=== PATIENT | male | born 1965 | race Two or more races ===

== ENCOUNTER 2020-01-06 09:29 | Inpatient (IN) | payer OTHER ==
[~2020-01-06] VITALS: Ht 175.3 cm; Wt 99.8 kg
[2020-01-06 10:19] LABS: Basophils # (auto) 0 10 ^3/uL (0-0.2); Eosinophils # (auto) 0 10 ^3/uL (0-0.8); Lymphocytes # (auto) 0.3 10 ^3/uL (0.4-5.4); Monocytes # (auto) 0.3 10 ^3/uL (0-1.3); Neutrophils # (auto) 5.5 10 ^3/uL (1.6-8.6); White Blood Cell 6.1 10^3/uL (4.4-10.8)
[2020-01-06 10:20] LABS: Basophils % (auto) 0.4 % (0.0-2.0); Hematocrit 39.2 % (41.0-53.0); Hemoglobin 12.9 g/dL (13.5-17.5); Lymphocytes % (auto) 4.8 % (10.0-50.0); Mean Corpuscular Hemoglobin 26.1 pg (28.0-32.0); Monocytes % (auto) 5.7 % (0.0-12.0); Neutrophils % (auto) 89.1 % (37.0-80.0); Platelet Count (auto) 275 10^3/uL (140-450); Red Blood Cells 4.96 10^6/uL (4.5-5.90)
[2020-01-06 10:28] LABS: Albumin 2.7 g/dL (3.4-5.0); Anion Gap 7 (5-15); Blood Urea Nitrogen 14 mg/dL (7-18); Calcium 8.8 mg/dL (8.5-10.1); Carbon Dioxide 26 mmol/L (21-32); Chloride 104 mmol/L (98-107); Glucose 126 mg/dL (74-106); Potassium 4.1 mmol/L (3.5-5.1); Sodium 137 mmol/L (136-145)
[2020-01-06 10:36] LABS: Alanine Aminotransferase 43 U/L (16-61); Alkaline Phosphatase 104 U/L (45-117); Aspartate Aminotransferase 39 U/L (15-37); BUN/Creatinine Ratio 18.7; Bilirubin, Total 0.4 mg/dL (0.2-1.0); CRP High Sensitivity 7.39 mg/dL (< 0.3); GFR African American 139 mL/min; GFR Non-African American 115 mL/min; Lactate Dehydrogenase 364 U/L (87-241); Total Protein 7.5 g/dL (6.4-8.2)
[2020-01-06] MEDS ORDERED: DexAMETHasone SOD PHOS 10MG/1ML VIAL INJ IV ONE (12:00)
[2020-01-06] MEDS ORDERED: DOXYCYCLINE 100MG/250ML 250 ML IV ONE (12:00)
[2020-01-06] MEDS ORDERED: LORazepam 0.5 MG TAB PO PRN (12:15)
[2020-01-06] MEDS ORDERED: ONDANSETRON HCL 4 MG/2 ML VIAL IV PRN (12:15)
[2020-01-06] MEDS ORDERED: ALUM & MAG HYDROX-SIMETH LIQ(MAALOX) 30 ML PO PRN (12:15)
[2020-01-06] MEDS ORDERED: ACETAMINOPHEN 500 MG TAB PO PRN (12:15)
[2020-01-06] MEDS ORDERED: NITROGLYCERIN 0.4 MG SL TAB SL PRN (12:15)
[2020-01-06] MEDS ORDERED: HYDROcodone-ACET 5/325MG TAB PO PRN (12:15)
[2020-01-06] MEDS ORDERED: MORPHINE SULF INJ 2 MG/ML SYRINGE 1ML IV PRN ×2 (12:15)
[2020-01-06] MEDS ORDERED: DOCUSATE SOD 100 MG CAP PO PRN (12:15)
[2020-01-06] MEDS ORDERED: PIPERACILLIN-TAZOB 3.375GM 100 ML IV ONE (12:45)
[2020-01-06] MEDS ORDERED: ENOXAPARIN SOD 100 MG/1 ML SYRINGE SC ONE (12:45)
[2020-01-06] MEDS ORDERED: VANCOMYCIN PER PHARMACY 0 MG IV SCH (12:45)
[2020-01-06] MEDS ORDERED: REMDESIVIR PER PHARMACY IV SCH (13:00)
[2020-01-06 13:30] LABS: Cholesterol 197 mg/dL (< 200); HDL Cholesterol 45 mg/dL (40-59); LDL Cholesterol 124 mg/dL (< 100); Triglycerides 185 mg/dL (< 150)
[2020-01-06] MEDS ORDERED: REMDESIVIR 200 MG in NS 210ml LOADING DOSE ADULT IV ONE (22:00)
[2020-01-06] MEDS: FAMOTIDINE (10MG/ML) 2ML VL IV SCH (22:09)
[2020-01-06] MEDS: ENOXAPARIN SOD 120 MG/0.8 ML SYRINGE SC SCH (22:10)
[2020-01-06] MEDS: VANCOMYCIN 1GM/250ML 250 ML IV SCH (23:17)
[2020-01-06] MEDS: SODIUM CHLORIDE 0.9% 1,000 ML IV SCH (23:17)
[2020-01-07] MEDS: PIPERACILLIN-TAZOB 3.375GM 100 ML IV SCH ×3 (00:21→12:07)
[2020-01-07 00:35] LABS: Lactic Acid w/Reflex 2.6 mmol/L (0.4-2.0)
[2020-01-07] MEDS: ALBUTEROL SULF HFA 90MCG INH 200DOSE IN SCH ×5 (04:23→21:39)
[2020-01-07] MEDS: BUDESONIDE (INHALATION) 180 MCG IH IN SCH ×3 (04:24→21:39)
[2020-01-07] MEDS: VANCOMYCIN 1GM/250ML 250 ML IV SCH (05:00)
[2020-01-07] MEDS: SODIUM CHLORIDE 0.9% 1,000 ML IV SCH (05:25)
[2020-01-07 05:36] LABS: Basophils # (auto) 0 10 ^3/uL (0-0.2); Basophils % (auto) 0.2 % (0.0-2.0); Eosinophils # (auto) 0 10 ^3/uL (0-0.8); Hematocrit 38.6 % (41.0-53.0); Hemoglobin 12.4 g/dL (13.5-17.5); Lymphocytes # (auto) 0.4 10 ^3/uL (0.4-5.4); Lymphocytes % (auto) 8.4 % (10.0-50.0); Mean Corpuscular Hemoglobin 25.6 pg (28.0-32.0); Mean Corpuscular Hgb Conc. 32.2 g/dL (32.0-36.0); Mean Corpuscular Volume 79.4 fL (80.0-100.0); Monocytes # (auto) 0.3 10 ^3/uL (0-1.3); Monocytes % (auto) 8.1 % (0.0-12.0); Neutrophils # (auto) 3.5 10 ^3/uL (1.6-8.6); Neutrophils % (auto) 83.3 % (37.0-80.0); Nucleated Red Blood Cells % 0.2 %; Platelet Count (auto) 318 10^3/uL (140-450); Red Blood Cells 4.86 10^6/uL (4.5-5.90); Red Cell Distribution Width 17.2 % (11.8-14.3); White Blood Cell 4.2 10^3/uL (4.4-10.8)
[2020-01-07 05:56] LABS: Potassium 3.9 mmol/L (3.5-5.1)
[2020-01-07 06:09] LABS: Albumin 2.5 g/dL (3.4-5.0); Bilirubin, Total 0.4 mg/dL (0.2-1.0); Calcium 8.9 mg/dL (8.5-10.1); Total Protein 7.4 g/dL (6.4-8.2)
[2020-01-07] MEDS ORDERED: DexAMETHasone SOD PHOS 10MG/1ML VIAL INJ IV SCH (10:00)
[2020-01-07] MEDS ORDERED: ZINC SULFATE 220mg CAP or TAB PO SCH (10:00)
[2020-01-07] MEDS ORDERED: ASCORBIC ACID 1,000 MG TAB PO SCH (10:00)
[2020-01-07] MEDS ORDERED: CHOLECALCIFEROL (VITD3) 2,000 UNIT CAP PO SCH (10:00)
[2020-01-07] MEDS: FAMOTIDINE (10MG/ML) 2ML VL IV SCH ×2 (10:29→22:29)
[2020-01-07] MEDS: ENOXAPARIN SOD 120 MG/0.8 ML SYRINGE SC SCH (10:29)
[2020-01-07] MEDS ORDERED: DEXTROSE (50%) 50ML SYRG IV PRN (13:15)
[2020-01-07] MEDS ORDERED: FUROSEMIDE 20 MG/2 ML VIAL IV ONE (13:15)
[2020-01-07] MEDS ORDERED: POTASSIUM CHL 10 Meq TABLET PO ONE (13:15)
[2020-01-07 16:13] VITALS: BP 145/95
[2020-01-07] MEDS ORDERED: InsuLIN REG 1unit/0.01ml Soln (100units/ml) SC SCH (17:00)
[2020-01-07] MEDS ORDERED: REMDESIVIR 100mg in NS 230ml DAILYx4DAYS (NO VENT) IV SCH (17:00)
[2020-01-07] MEDS ORDERED: ACCU-CHEK COMFORT CURVE STRIP VI SCH (17:00)
[2020-01-07] MEDS ORDERED: ENOXAPARIN SOD 100 MG/1 ML SYRINGE SC SCH (22:00)
[2020-01-07 22:35] VITALS: BP 137/84
[2020-01-08] MEDS ORDERED: FUROSEMIDE 20 MG/2 ML VIAL IV SCH (10:00)
[2020-01-08] MEDS ORDERED: POTASSIUM CHL 10 Meq TABLET PO SCH (10:00)
== END 2020-01-07 23:13 | disposition short-term general hospital (02) | DRG 871 ==
LOC: ER 09:29 → EDBD 09:29 → TELE 09:30
PROVIDERS: ADMIT Hospitalist; ATTEND Internal Medicine
PROC: XW033E5 Introduction of Remdesivir Anti-infective into Peripheral Vein, Percutaneous Approach, New Technology Group 5 (ICD-10-PCS; principal; 2020-01-06)
DX: A41.89 Other specified sepsis (principal); U07.1 COVID-19; J12.89 Other viral pneumonia; J96.01 Acute respiratory failure with hypoxia; E44.0 Moderate protein-calorie malnutrition; D64.9 Anemia, unspecified; E11.9 Type 2 diabetes mellitus without complications; E66.01 Morbid (severe) obesity due to excess calories; Z68.32 Body mass index [BMI] 32.0-32.9, adult; E78.5 Hyperlipidemia, unspecified; I10 Essential (primary) hypertension; R74.01 Elevation of levels of liver transaminase levels
CPT/HCPCS: 36415; 71045; 80053; 80061; 82306; 82728; 83036; 83605; 83615; 83735; 83880; 84443; 84484; 85025; 85379; 86141; 86850; 86900; 86901; 87040; 87426; 94640; 96365; 96367; 96375; 99291; G0378; J1100; J2543; J3490

== ENCOUNTER 2021-03-26 20:13 | Emergency (ER) | payer MEDICAID, OTHER ==
[~2021-03-26] VITALS: Ht 185.4 cm; Wt 103.4 kg
[2021-03-26 21:19] LABS: Basophils # (auto) 0 10 ^3/uL (0-0.2); Basophils % (auto) 0.2 % (0.0-2.0); Eosinophils # (auto) 0.1 10 ^3/uL (0-0.8); Eosinophils % (auto) 0.7 % (0.0-7.0); Lymphocytes # (auto) 1.1 10 ^3/uL (0.4-5.4); Lymphocytes % (auto) 11.2 % (10.0-50.0); Mean Corpuscular Hemoglobin 28.3 pg (28.0-32.0); Mean Corpuscular Hgb Conc. 34.1 g/dL (32.0-36.0); Mean Corpuscular Volume 82.8 fL (80.0-100.0); Monocytes # (auto) 0.7 10 ^3/uL (0-1.3); Monocytes % (auto) 7.2 % (0.0-12.0); Neutrophils % (auto) 80.7 % (37.0-80.0); Nucleated Red Blood Cells % 0.1 %; Red Blood Cells 4.95 10^6/uL (4.5-5.90); Red Cell Distribution Width 16.7 % (11.8-14.3); White Blood Cell 9.9 10^3/uL (4.4-10.8)
[2021-03-26 21:35] LABS: Albumin 3.7 g/dL (3.4-5.0); Calcium 8.8 mg/dL (8.5-10.1); Magnesium 2.2 mg/dL (1.6-2.6); Potassium 3.7 mmol/L (3.5-5.1)
[2021-03-26 21:41] LABS: BUN/Creatinine Ratio 28.1; Bilirubin, Total 0.5 mg/dL (0.2-1.0)
[2021-03-26] MEDS ORDERED: KETOROLAC TROMETH 30 MG/ML 1ML VIAL IV ONE (21:45)
[2021-03-26 22:03] VITALS: BP 120/69
== END 2021-03-26 23:30 | disposition home or self-care (01) ==
LOC: ER 20:17
DX: R07.89 Other chest pain (principal); E78.5 Hyperlipidemia, unspecified
CPT/HCPCS: 36415; 71045; 80053; 83735; 84484; 85025; 85379; 93005; 96374; 99285; J1885